=== PATIENT | female | born 1985 | race Caucasian/White ===

== ENCOUNTER 2021-11-07 16:37 | Emergency (ER) | payer MEDICAID ==
[~2021-11-07] VITALS: Ht 162.6 cm; Wt 129.6 kg
[~2021-11-07 16:37] MED LIST: ALPR-624 PO; CHLO118M PO; CLOT12CR TP; CLOT15CR73 TP; CYCL-1 PO; FLUT16SP2 BOTHNARES; IBUP-1985 PO; LIDO20SO PO; OMEP40CA21 PO; PREN-55 PO; TRAM50TA2 PO
[2021-11-07 16:46] VITALS: BP 147/121
== END 2021-11-07 19:09 | disposition home or self-care (01) ==
LOC: ER 16:37
DX: M79.671 Pain in right foot (principal); M79.672 Pain in left foot; Z53.21 Procedure and treatment not carried out due to patient leaving prior to being seen by health care provider

== ENCOUNTER 2021-11-18 12:43 | Emergency (ER) | payer MEDICAID ==
[~2021-11-18] VITALS: Ht 162.6 cm; Wt 84.1 kg
[2021-11-18 13:28] VITALS: BP 162/88
== END 2021-11-18 14:05 | disposition home or self-care (01) ==
LOC: ER 12:44
DX: Z00.8 Encounter for other general examination (principal); I10 Essential (primary) hypertension; K21.9 Gastro-esophageal reflux disease without esophagitis; Z56.0 Unemployment, unspecified; Z59.00 Homelessness unspecified; Z88.4 Allergy status to anesthetic agent
CPT/HCPCS: 99281

== ENCOUNTER 2021-12-01 08:06 | Emergency (ER) | payer MEDICAID ==
[~2021-12-01] VITALS: Ht 162.6 cm; Wt 84.1 kg
[2021-12-01 08:08] VITALS: BP 135/86
== END 2021-12-01 09:37 | disposition left against medical advice (07) ==
LOC: ER 08:07
DX: M54.9 Dorsalgia, unspecified (principal); Z53.21 Procedure and treatment not carried out due to patient leaving prior to being seen by health care provider

== ENCOUNTER 2022-02-13 12:10 | Emergency (ER) | payer MEDICAID ==
[~2022-02-13] VITALS: Ht 162.6 cm; Wt 81.0 kg
[2022-02-13 12:55] VITALS: BP 130/88
== END 2022-02-13 15:29 | disposition home or self-care (01) ==
LOC: ER 12:11
DX: Z13.89 Encounter for screening for other disorder (principal); F19.10 Other psychoactive substance abuse, uncomplicated; I10 Essential (primary) hypertension; K21.9 Gastro-esophageal reflux disease without esophagitis; F41.9 Anxiety disorder, unspecified; Z87.440 Personal history of urinary (tract) infections; Z98.890 Other specified postprocedural states; Z60.2 Problems related to living alone; Z56.0 Unemployment, unspecified; Z59.00 Homelessness unspecified; Z88.8 Allergy status to other drugs, medicaments and biological substances; Z79.2 Long term (current) use of antibiotics; Z79.899 Other long term (current) drug therapy
CPT/HCPCS: 99281

== ENCOUNTER 2022-08-16 12:35 | Emergency (ER) | payer MEDICAID ==
[~2022-08-16] VITALS: Ht 162.6 cm; Wt 102.0 kg
[2022-08-16 13:13] VITALS: BP 125/89
[2022-08-16] MEDS ORDERED: CefTRIAXone 1000mg IM Kit (w/lidocaine diluent) IM STA (14:52)
[2022-08-16] MEDS ORDERED: DOXYCYCLINE 100MG CAPSULE PO ONE (14:55)
[2022-08-16] MEDS ORDERED: OMEP40CA21 PO (15:26)
[2022-08-16] MEDS ORDERED: DOXY100C76 PO (15:26)
== END 2022-08-16 15:53 | disposition home or self-care (01) ==
LOC: ER 12:36
DX: N89.8 Other specified noninflammatory disorders of vagina (principal); Z20.2 Contact with and (suspected) exposure to infections with a predominantly sexual mode of transmission; I10 Essential (primary) hypertension; K21.9 Gastro-esophageal reflux disease without esophagitis; F41.9 Anxiety disorder, unspecified; Z59.00 Homelessness unspecified; Z60.2 Problems related to living alone; Z56.0 Unemployment, unspecified; Z88.8 Allergy status to other drugs, medicaments and biological substances; Z79.899 Other long term (current) drug therapy
CPT/HCPCS: 99283

== ENCOUNTER 2023-03-16 14:31 | Emergency (ER) | payer SELFPAY ==
[~2023-03-16] VITALS: Ht 162.6 cm; Wt 84.1 kg
[2023-03-16 14:46] VITALS: BP 133/94; PULSE 94; RESP 16; O2SAT 93
[2023-03-16] MEDS ORDERED: IBUP-1986 PO (15:35)
[2023-03-16 15:45] VITALS: TEMP 98.7
== END 2023-03-16 15:48 | disposition home or self-care (01) ==
LOC: ER 14:32
DX: S13.4XXA Sprain of ligaments of cervical spine, initial encounter (principal); M54.6 Pain in thoracic spine; I10 Essential (primary) hypertension; F41.9 Anxiety disorder, unspecified; Z56.0 Unemployment, unspecified; Z59.00 Homelessness unspecified; Z88.6 Allergy status to analgesic agent; Z79.899 Other long term (current) drug therapy; W22.8XXA Striking against or struck by other objects, initial encounter; Y93.89 Activity, other specified; Y92.89 Other specified places as the place of occurrence of the external cause; Y99.8 Other external cause status
CPT/HCPCS: 99284

== ENCOUNTER 2023-04-20 14:14 | Emergency (ER) | payer MEDICAID ==
[~2023-04-20] VITALS: Ht 162.6 cm; Wt 104.2 kg
[~2023-04-20 14:14] MED LIST changes: +IBUP-1986 PO
[2023-04-20] MEDS ORDERED: MUPI22OI30 TOP (14:47)
[2023-04-20 15:30] VITALS: BP 153/89; PULSE 104; RESP 18; TEMP 97.8; O2SAT 96
== END 2023-04-20 15:57 | disposition home or self-care (01) ==
LOC: ER 14:14
DX: S00.81XA Abrasion of other part of head, initial encounter (principal); S80.922A Unspecified superficial injury of left lower leg, initial encounter; I10 Essential (primary) hypertension; Z56.0 Unemployment, unspecified; Z59.00 Homelessness unspecified; Z88.5 Allergy status to narcotic agent; Z79.899 Other long term (current) drug therapy; X58.XXXA Exposure to other specified factors, initial encounter; Y93.89 Activity, other specified; Y92.89 Other specified places as the place of occurrence of the external cause; Y99.8 Other external cause status
CPT/HCPCS: 99283

== ENCOUNTER 2023-04-29 15:46 | Emergency (ER) | payer MEDICAID ==
[~2023-04-29] VITALS: Ht 162.6 cm; Wt 103.4 kg
[2023-04-29 15:47] VITALS: BP 149/79; PULSE 98; RESP 16; TEMP 98.9; O2SAT 94
[2023-04-29] MEDS ORDERED: NAPR-56 PO (17:06)
[2023-04-29] MEDS ORDERED: SULF1TAB49 PO (17:06)
[2023-04-29] MEDS ORDERED: CEPH-585 PO (17:06)
== END 2023-04-29 17:12 | disposition home or self-care (01) ==
LOC: ER 15:47
DX: L03.312 Cellulitis of back [any part except buttock and flank] (principal); I10 Essential (primary) hypertension; Z56.0 Unemployment, unspecified; Z59.00 Homelessness unspecified; Z79.899 Other long term (current) drug therapy; Z88.5 Allergy status to narcotic agent
CPT/HCPCS: 99283

== ENCOUNTER 2023-08-31 16:26 | Emergency (ER) | payer MEDICAID ==
[~2023-08-31] VITALS: Ht 162.6 cm; Wt 105.0 kg
[~2023-08-31 16:26] MED LIST changes: +CEPH-585 PO
[2023-08-31] MEDS ORDERED: MUPI22OI30 TOP (17:14)
[2023-08-31] MEDS ORDERED: SULF1TAB49 PO (17:14)
[2023-08-31 17:44] LABS: BILIRUBIN,URINE NEGATIVE (Neg); GLUCOSE, URINE NEGATIVE (Neg); KETONES,URINE NEGATIVE (Neg); LEUKOCYTE ESTERASE ,URINE NEGATIVE (Neg); NITRITES, URINE NEGATIVE (Neg); OCCULT BLOOD,URINE NEGATIVE (Neg); PROTEIN,URINE NEGATIVE (Neg); URINE HCG NEGATIVE (NEG); UROBILINOGEN,URINE 0.2 E.U/dL (0.2-1.0)
[2023-08-31 17:48] LABS: COLOR,URINE YELLOW (Yellow); UA COLLECTION TYPE CLN CATCH MIDSTREAM
[2023-08-31 17:50] LABS: CLARITY,URINE Slightly Cloudy (Clear)
[2023-08-31 17:51] LABS: BACTERIA,URINE FEW /HPF (Neg); MUCUS STRANDS MODERATE /LPF (Neg); RBC,URINE 0-2 /HPF (0-2); SQUAMOUS EPITHELIAL CELL,UR MANY /LPF (FEW); WBC,URINE 0-4 /HPF (0-4)
[2023-08-31 18:22] VITALS: BP 125/76; PULSE 66; RESP 16; TEMP 98; O2SAT 100
== END 2023-08-31 18:25 | disposition home or self-care (01) ==
LOC: ER 16:27
DX: R10.9 Unspecified abdominal pain (principal); R60.9 Edema, unspecified; I10 Essential (primary) hypertension; K21.9 Gastro-esophageal reflux disease without esophagitis; Z59.00 Homelessness unspecified; Z56.0 Unemployment, unspecified; Z88.8 Allergy status to other drugs, medicaments and biological substances; Z79.899 Other long term (current) drug therapy; Z79.2 Long term (current) use of antibiotics
CPT/HCPCS: 81001; 81025; 99283

== ENCOUNTER 2023-11-28 16:15 | Emergency (ER) | payer MEDICAID ==
[~2023-11-28] VITALS: Ht 162.6 cm; Wt 79.5 kg
[2023-11-28 16:32] VITALS: BP 146/100; PULSE 83; RESP 18; O2SAT 98
[2023-11-28 19:06] VITALS: TEMP 97.8
== END 2023-11-28 19:08 | disposition home or self-care (01) ==
LOC: ER 16:16
DX: L30.1 Dyshidrosis [pompholyx] (principal); I10 Essential (primary) hypertension; K21.9 Gastro-esophageal reflux disease without esophagitis; F41.9 Anxiety disorder, unspecified; Z88.4 Allergy status to anesthetic agent; Z79.2 Long term (current) use of antibiotics; Z79.1 Long term (current) use of non-steroidal anti-inflammatories (NSAID); Z79.899 Other long term (current) drug therapy
CPT/HCPCS: 99281

== ENCOUNTER 2024-04-19 16:43 | Emergency (ER) | payer MEDICAID ==
[~2024-04-19] VITALS: Ht 162.6 cm; Wt 97.7 kg
[2024-04-19 16:50] VITALS: BP 133/103; PULSE 85; RESP 16; O2SAT 97
[2024-04-19] MEDS ORDERED: PRED10TA23 PO (17:27)
[2024-04-19] MEDS ORDERED: CEPH-585 PO (17:27)
[2024-04-19 17:33] VITALS: TEMP 98
== END 2024-04-19 17:36 | disposition home or self-care (01) ==
LOC: ER 16:44
DX: F22 Delusional disorders (principal); L03.211 Cellulitis of face; N89.8 Other specified noninflammatory disorders of vagina; Z88.4 Allergy status to anesthetic agent; Z79.1 Long term (current) use of non-steroidal anti-inflammatories (NSAID); Z79.899 Other long term (current) drug therapy; Z79.52 Long term (current) use of systemic steroids; Z59.02 Unsheltered homelessness
CPT/HCPCS: 99283

== ENCOUNTER 2024-08-20 08:46 | Emergency (ER) | payer MEDICAID ==
[~2024-08-20] VITALS: Ht 162.6 cm; Wt 89.8 kg
[2024-08-20 08:48] VITALS: BP 130/79; PULSE 95; RESP 16; O2SAT 97
[2024-08-20] MEDS ORDERED: SULF1TAB45 PO (10:28)
[2024-08-20] MEDS: mupirocin 2% ointment 22GM TP STA (10:36)
[2024-08-20] MEDS: sulfamethoxazole/trimethoprim DS (800/160mg) tablet PO ONE (10:36)
[2024-08-20 10:44] VITALS: TEMP 98.6
== END 2024-08-20 10:43 | disposition home or self-care (01) ==
LOC: ER 08:47
DX: L02.01 Cutaneous abscess of face (principal); L03.211 Cellulitis of face; I10 Essential (primary) hypertension; Z88.4 Allergy status to anesthetic agent
CPT/HCPCS: 10060; 99284; A6402; A6449

== ENCOUNTER 2024-08-25 15:16 | Emergency (ER) | payer MEDICAID ==
[~2024-08-25] VITALS: Ht 162.6 cm; Wt 72.7 kg
[~2024-08-25 15:16] MED LIST changes: +SULF1TAB45 PO
[2024-08-25 16:45] VITALS: BP 122/68; PULSE 70; RESP 18; TEMP 97.7; O2SAT 98
== END 2024-08-25 16:49 | disposition home or self-care (01) ==
LOC: ER 15:16
DX: L01.00 Impetigo, unspecified (principal); I10 Essential (primary) hypertension; K21.9 Gastro-esophageal reflux disease without esophagitis; Z88.6 Allergy status to analgesic agent; Z88.4 Allergy status to anesthetic agent; Z79.1 Long term (current) use of non-steroidal anti-inflammatories (NSAID); Z79.52 Long term (current) use of systemic steroids; Z79.899 Other long term (current) drug therapy; Z56.0 Unemployment, unspecified; Z59.00 Homelessness unspecified; Z60.2 Problems related to living alone
CPT/HCPCS: 99281

== ENCOUNTER 2024-09-22 15:35 | Emergency (ER) | payer MEDICAID ==
[~2024-09-22] VITALS: Ht 162.6 cm; Wt 81.8 kg
[~2024-09-22 15:35] MED LIST changes: -SULF1TAB45 PO
[2024-09-22 15:50] VITALS: BP 121/76; PULSE 73; RESP 18; TEMP 97.6; O2SAT 98
== END 2024-09-22 17:45 | disposition left against medical advice (07) ==
LOC: ER 15:36
DX: Z76.0 Encounter for issue of repeat prescription (principal); Z53.21 Procedure and treatment not carried out due to patient leaving prior to being seen by health care provider

== ENCOUNTER 2024-09-24 12:57 | Emergency (ER) | payer MEDICAID ==
[~2024-09-24] VITALS: Ht 162.6 cm; Wt 91.0 kg
[2024-09-24 13:19] VITALS: BP 135/85; PULSE 85; RESP 16; TEMP 97.6; O2SAT 97
[2024-09-24] MEDS ORDERED: SULF1TAB49 PO (15:19)
--- NOTE | 2024-09-24 15:19 | Physician Documentation ---
History of Present Illness ~ Chief Complaint: Medication Request Stated Complaint: MED REQUEST Time Seen by MD: 13:58 Primary Medical Doctor: Heriberto HPI Patient is seen Today with complaints of skin lesion or skin infection on her face. Patient denies any chest pain, shortness of breath, abdominal pain, nausea, vomiting, diarrhea. Patient has no other concern or complaint at this time. Patient denies any fever or chills. Tetanus within 5 years?: No Medication Reconciliation Allergies: Coded Allergies: Anesthetics - Amide Type - Select A (Verified Allergy, Unknown, 09/22/24) Anesthetics - Candace Type- Parabens (Verified Allergy, Unknown, 09/22/24) Scheduled Cephalexin*Monohydrate* (Keflex*), 1 CAP PO QID Chlorhexidine Gluconate (Peridex), 15 ML PO BID Clotrimazole (Lotrimin Af), 1 APPLIC TP BID Clotrimazole/Betamet Diprop Cream* (Lotrisone Cream*), 1 APPLIC TP BID Fluticasone Propionate (Flonase), 2 SPRAYS BOTHNARES DAILY Ibuprofen (Ibuprofen), 1 TAB PO Q8H Ibuprofen (Ibuprofen), 1 TAB PO Q8H Lidocaine Hcl (Lidocaine Hcl Viscous), 15 ML PO Q6H Omeprazole (Prilosec), 1 CAP PO DAILY Vit #76/Iron,Carb/FA (Prenatabs Rx Tablet), 1 TAB PO DAILY Tramadol Hcl (Tramadol Hcl), 50 MG PO Q6H PRN FOR PAIN Scheduled PRN Alprazolam* (Xanax*), 1 MG PO TID PRN for anxiety Cyclobenzaprine* (Cyclobenzaprine*), 1 TABLET PO Q8H PRN for muscle spasms Past Medical History Past Medical History: Hypertension, Constipation, GERD, UTI, *PSYCH*, Anxiety Past Surgical History: other Alcohol Use: None Drug Use: none Lives with: Alone Lives In: Homeless Occupation: unemployed Review of Systems Constitutional: Denies: chills, fever, weakness Eyes: Denies: pain, blurred vision ENT: Denies: ear pain, nose pain, throat pain, mouth pain Respiratory: Denies: cough, shortness of breath Cardiovascular: Denies: chest pain, palpitations Gastrointestinal: Denies: abdominal pain, nausea, vomiting Genitourinary: Denies: burning, dysuria Female Genitalia: Denies: vaginal discharge, pelvic pain Neurological: Denies: headache, dizziness Musculoskeletal: Denies: pain, swelling Integumentary: Denies: rash, lesions Allergic/Immunologic: Denies: hives, itching Hematologic/Lymphatic: Denies: no symptoms reported Psychiatric: Denies: depression, anxiety Physical Exam Vital Signs: Temperature: 97.6, Source: Temporal, Heart Rate: 85, Respiratory Rate: 16, BP: 135/85, Pulse Oximetry: 97, Weight: 91.000 Oxygen Flow Rate: 0 Physical Exam General: Awake and Alert, no acute distress. HEENT: Conjunctiva pink, Sclera clear, Mucus Membranes moist. Neck: Supple without masses and tenderness. Resp: Unlabored. Lungs clear to auscultation bilaterally. Heart: Regular Rate and rhythm, normal S1 and S2 without murmur, rub or gallop. Abdomen: Soft and non tender no organomegaly Extremities: No cyanosis,clubbing or edema. Skin: Patient on exam does have superficial skin abrasion on her lateral cheeks bilaterally with some mild erythema surrounding. Progress Results/Orders Results/Orders Vital Signs 09/24/24 13:19 Temp 97.6 Pulse 85 Resp 16 B/P (MAP) 135/85 Pulse Ox 97 O2 Flow Rate 0 Medical Decision Making Findings Patient is seen Today with complaints of skin lesion or skin infection on her face. Patient denies any chest pain, shortness of breath, abdominal pain, nausea, vomiting, diarrhea. Patient has no other concern or complaint at this time. Patient denies any fever or chills. Prescription of Bactrim DS one tab twice a day to be taken by mouth for 10 days sent to patient pharmacy. Patient will return to ED with any worsening, concerning or changing symptoms. Patient will take medication as prescribed. Departure Disposition: HOME / SELF CARE / HOMELESS Impression: Primary Impression: Cellulitis Qualified Codes: L03.211 - Cellulitis of face Condition: Improved Discharge Instructions: Cellulitis, Adult, [id number] Additional Instructions: Prescription of Bactrim DS one tab twice a day to be taken by mouth for 10 days sent to patient pharmacy. Patient will return to ED with any worsening, concerning or changing symptoms. Patient will take medication as prescribed. Referrals: NO PRIMARY CARE PROVIDER (PCP) Prescriptions Sulfamethoxazole/Trimethoprim (Bactrim Ds Tablet) 800 Mg-160 Mg Tablet 1 TAB PO Q12H for 10 Days, #20 TAB Prov: DARREL COPELAND PAC 09/24/24 Signature Scribe Signature: No scribe Attestation: No scribe DARREL COPELAND PAC September 24, 2024 15:19
== END 2024-09-24 15:33 | disposition home or self-care (01) ==
LOC: ER 12:57
DX: L03.211 Cellulitis of face (principal); I10 Essential (primary) hypertension; K21.9 Gastro-esophageal reflux disease without esophagitis; F41.9 Anxiety disorder, unspecified; Z88.4 Allergy status to anesthetic agent; Z79.899 Other long term (current) drug therapy; Z56.0 Unemployment, unspecified; Z59.00 Homelessness unspecified; Z60.2 Problems related to living alone
CPT/HCPCS: 99283

== ENCOUNTER 2024-10-08 10:18 | Emergency (ER) | payer MEDICAID ==
[~2024-10-08] VITALS: Ht 162.6 cm; Wt 81.8 kg
[2024-10-08] MEDS: OLANZapine 5mg rapidly disint. tablet PO ONE (11:08)
[2024-10-08 12:02] LABS: BILIRUBIN,URINE NEGATIVE (Neg); CLARITY,URINE CLEAR (Clear); COLOR,URINE YELLOW (Yellow); GLUCOSE, URINE NEGATIVE (Neg); KETONES,URINE NEGATIVE (Neg); LEUKOCYTE ESTERASE ,URINE NEGATIVE (Neg); NITRITES, URINE NEGATIVE (Neg); OCCULT BLOOD,URINE NEGATIVE (Neg); PROTEIN,URINE NEGATIVE (Neg)
[2024-10-08 12:03] LABS: UA COLLECTION TYPE VOIDED
[2024-10-08 12:29] LABS: URINE HCG NEGATIVE (NEG)
[2024-10-08 12:49] LABS: URINE AMPHETAMINE SCREEN NEGATIVE (Neg); URINE BARBITUATE SCREEN NEGATIVE (Neg); URINE BENZODIAZEPINES SCREEN NEGATIVE (Neg); URINE CANNABINOID SCREEN NEGATIVE (Neg); URINE COCAINE SCREEN NEGATIVE (Neg); URINE METHADONE SCREEN NEGATIVE (Neg); URINE OPIATE SCREEN NEGATIVE (Neg); URINE PHENCYCLIDINE SCREEN NEGATIVE (Neg)
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
[2024-10-08 19:26] VITALS: BP 110/84; PULSE 90; RESP 18; TEMP 97.4; O2SAT 99
== END 2024-10-08 19:15 | disposition home or self-care (01) ==
LOC: ER 10:19
DX: F99 Mental disorder, not otherwise specified (principal); I10 Essential (primary) hypertension; K21.9 Gastro-esophageal reflux disease without esophagitis; F41.9 Anxiety disorder, unspecified; Z88.4 Allergy status to anesthetic agent; Z79.899 Other long term (current) drug therapy; Z56.0 Unemployment, unspecified; Z59.00 Homelessness unspecified; Z60.2 Problems related to living alone
CPT/HCPCS: 80305; 81003; 81025; 99284

== ENCOUNTER 2025-03-26 13:31 | Emergency (ER) | payer MEDICAID ==
[~2025-03-26] VITALS: Ht 162.6 cm; Wt 94.2 kg
[~2025-03-26 13:31] MED LIST changes: -IBUP-1985 PO; +IBUP600T52 PO
[2025-03-26 13:45] VITALS: BP 141/81; PULSE 87; RESP 16; TEMP 98.3; O2SAT 96
[2025-03-26] MEDS ORDERED: DOXY100C43 PO (15:05)
[2025-03-26] MEDS ORDERED: MUPI22OI30 TOP (15:05)
--- NOTE | 2025-03-26 15:09 | Physician Documentation ---
History of Present Illness General Chief Complaint: Multiple Medical Complaints Stated Complaint: SPIDER BITE Time Seen by MD: 13:59 Primary Medical Doctor: None History of Present Illness Initial Comments 39-year-old female who presents to the emergency department for evaluation and management of the facial rash to the right cheek and left cheek that has been waxing and waning for six months at times gets better with the antibiotics that she reports. No B symptoms reported. Medication Reconciliation Allergies: Coded Allergies: Anesthetics - Amide Type - Select A (Verified Allergy, Unknown, 03/26/25) Anesthetics - Candace Type- Parabens (Verified Allergy, Unknown, 03/26/25) Scheduled Cephalexin*Monohydrate* (Keflex*), 1 CAP PO QID Chlorhexidine Gluconate (Peridex), 15 ML PO BID Clotrimazole (Lotrimin Af), 1 APPLIC TP BID Clotrimazole/Betamet Diprop Cream* (Lotrisone Cream*), 1 APPLIC TP BID Fluticasone Propionate (Flonase), 2 SPRAYS BOTHNARES DAILY Ibuprofen (Ibuprofen), 1 TAB PO Q8H Ibuprofen (Ibuprofen), 1 TAB PO Q8H Lidocaine Hcl (Lidocaine Hcl Viscous), 15 ML PO Q6H Omeprazole (Prilosec), 1 CAP PO DAILY Vit #76/Iron,Carb/FA (Prenatabs Rx Tablet), 1 TAB PO DAILY Tramadol Hcl (Tramadol Hcl), 50 MG PO Q6H PRN FOR PAIN Scheduled PRN Alprazolam* (Xanax*), 1 MG PO TID PRN for anxiety Cyclobenzaprine* (Cyclobenzaprine*), 1 TABLET PO Q8H PRN for muscle spasms Past Medical History Past Medical History: Hypertension, Constipation, GERD, UTI, *PSYCH*, Anxiety Past Surgical History: other Smoking: Non-Smoker Alcohol Use: None Drug Use: none Lives with: Alone Lives In: Homeless Occupation: unemployed Review of Systems All Other Systems at this time: Reviewed and Negative Integ: Reports: rash (Right and left cheek facial rash) Physical Exam Physical Exam Vital Signs: RN Vital Signs have been reviewed: Yes, Temperature: 98.3, Source: Oral, Heart Rate: 87, Respiratory Rate: 16, BP: 141/81, Pulse Oximetry: 96, Weight: 94.200 Oxygen Flow Rate: 0 General Appearance: alert, WD/WN, other (Anxious) Head: normal inspection Face: other (Excoriated rash to the right and left facial cheeks with pustular crusting discharge) Pupils/EOM/Fundus: PERRLA Neck: non-tender; No: lymphadenopathy (R), lymphadenopathy (L) Chest: no accessory muscle use Cardiovascular: regular rate, rhythm Extremities: normal range of motion Neurologic: oriented x4 Motor / Sensory: no motor deficit, no sensory deficit Progress Results/Orders Results/Orders Vital Signs 03/26/25 13:45 Temp 98.3 Pulse 87 Resp 16 B/P (MAP) 141/81 Pulse Ox 96 O2 Flow Rate 0 Medical Decision Making Additional information obtaine: N/A Findings Examination history consistent with impetigo/staph infection that may be secondary to parasitosis and/or MRSA. We will begin doxycycline and Bactroban. No clinical suspicion for abscess requiring incision and drainage or deep tissue infection or zoster. No lymph adenopathy noted. No facial asymmetry no clinical suspicion for angioedema or Zhao's angina. Differential Diagnosis Differentials include facial cellulitis, less likely Zhao's angina, odontogenic infection angioedema, bullous pemphigus Departure Disposition: HOME / SELF CARE / HOMELESS Impression: Primary Impression: Impetigo Additional Impression: Rash of face Condition: Stable Discharge Instructions: Impetigo, Adult Additional Instructions: Please begin medications as directed and have repeat examination in the 72 hours by health healthcare insurance sales agent. If symptoms worsen in the interim please return in the emergency department for re-evaluation. Thank you for visiting in the emergency department [facility]. Referrals: NO PRIMARY CARE PROVIDER (PCP) Prescriptions Mupirocin* (Bactroban*) 22 Gm Tube 1 APPLIC TOP Q8H for 10 Days, #22 GM apply to affected area(s) Prov: MAGDALENA POLANCO PAC 03/26/25 Doxycycline Monohydrate (Doxycycline Monohydrate) 100 Mg Capsule 100 MG PO BID, #20 CAP may sub doxycycline hyclate or azithromycin z-pack as prescribed Prov: MAGDALENA POLANCO 03/26/25 Education Educated: Patient Educated regarding: diagnosis, treatment, prognosis, need for follow up Signature Scribe Signature: . Attestation: . MAGDALENA POLANCO Mar 26, 2025 15:09
== END 2025-03-26 15:10 | disposition home or self-care (01) ==
LOC: ER 13:32
DX: L01.00 Impetigo, unspecified (principal); R21 Rash and other nonspecific skin eruption; I10 Essential (primary) hypertension; Z88.4 Allergy status to anesthetic agent
CPT/HCPCS: 99283

== ENCOUNTER 2025-03-30 14:37 | Emergency (ER) | payer MEDICAID ==
[~2025-03-30] VITALS: Ht 162.6 cm; Wt 72.7 kg
[~2025-03-30 14:37] MED LIST changes: +DOXY100C43 PO; +MUPI22OI30 TOP
[2025-03-30 14:53] VITALS: BP 131/95; PULSE 76; RESP 18; TEMP 97.6; O2SAT 98
== END 2025-03-30 16:20 | disposition left against medical advice (07) ==
LOC: ER 14:38
DX: Z00.00 Encounter for general adult medical examination without abnormal findings (principal); Z53.21 Procedure and treatment not carried out due to patient leaving prior to being seen by health care provider; Z88.0 Allergy status to penicillin; Z88.8 Allergy status to other drugs, medicaments and biological substances
CPT/HCPCS: 99281